=== PATIENT | male | born 1980 | race Hispanic/Latino ===

== ENCOUNTER 2022-07-29 16:59 | Emergency (ER) | payer SELFPAY ==
--- OUTSIDE RECORDS SUMMARY | 2022-07-29 17:03 | XMS REPORT | Continuity of Care Document ---
:1980 Author Organization [facility] t Address [address] [place] [address] Care Team Providers Name Role Phone DEISY MADISON Primary Care Physician Unavailable DEISY MADISON Attending Clinician Unavailable LEONCIO PATEL Attending Clinician Unavailable Los Bowden MD, Cuong Attending Clinician LISA SHERMAN Attending Clinician Unavailable JAMILA CALHOUN Attending Clinician Unavailable DONELL DARLING Attending Clinician Unavailable Payers Payer Name Policy Type Policy Number Effective Date Expiration Date Lee CERVANTES [id number] [employer] 00:00:00 00:00:00 Problems This patient has no known problems. Allergies, Adverse Reactions, Alerts This patient has no known allergies or adverse reactions. Social History Social Habit Start Date Stop Date Quantity Comments Source Gender identity Mal trotter Sexual orientation [facility] Exposure to 2021-08-15 2021-08-[address] [facility] SARS-CoV-2 (event) 00:00:00 08:14:00 Alcohol intake 2021-08-25 2021-08-25 Lifetime Mal Paul [facility] 00:00:00 00:00:00 non-drinker (finding) History of Social 2021-08-25 2021-08-25 [facility] function 00:00:00 00:00:00 Tobacco use and 2018-10-13 2018-10-13 Smokeless tobacco [facility] exposure 00:00:00 00:00:00 non-user Sex Ass[birth year] At [birth year] Mal trotter 00:00:00 00:00:00 Smoking Status Start Date Stop Date Source Never smoked tobacco [facility] Medications This patient has no known medications. Vital Signs Vital Name Observation Time Observation Value Comments Source Systolic blood pressure 2021-08-25 08:29:00 114 mm[Hg] [facility] Diastolic blood pressure 2021-08-25 08:29:00 60 mm[Hg] [facility] Heart rate 2021-08-25 08:29:00 62 /min [facility] Body temperature 2021-08-25 08:29:00 36.72 [facility] Respiratory rate 2021-08-25 08:29:00 16 /min [facility] Body height 2021-08-25 08:29:00 172.7 cm [facility] Body weight 2021-08-25 08:29:00 74.118 kg [facility] BMI 2021-08-25 08:29:00 24.84 kg/m2 [facility] Systolic blood pressure 2021-08-25 08:29:00 114 mm[Hg] [facility] Diastolic blood pressure 2021-08-25 08:29:00 60 mm[Hg] [facility] Heart rate 2021-08-25 08:29:00 62 /min [facility] Body temperature 2021-08-25 08:29:00 36.72 [facility] Respiratory rate 2021-08-25 08:29:00 16 /min [facility] Body height 2021-08-25 08:29:00 172.7 cm [facility] Body weight 2021-08-25 08:29:00 74.118 kg [facility] BMI 2021-08-25 08:29:00 24.84 kg/m2 [facility] Systolic blood pressure 2021-08-25 08:29:00 114 mm[Hg] [facility] Diastolic blood pressure 2021-08-25 08:29:00 60 mm[Hg] [facility] Heart rate 2021-08-25 08:29:00 62 /min [facility] Body temperature 2021-08-25 08:29:00 36.72 [facility] Respiratory rate 2021-08-25 08:29:00 16 /min [facility] Body height 2021-08-25 08:29:00 172.7 cm Mal Burdick brayden Body weight 2021-08-25 08:29:00 74.118 kg Mal Burdick ea BMI 2021-08-25 08:29:00 24.84 kg/m2 [facility] Gennaro brayden Procedures Procedure Date / Time Performed Performing Clinician Sourc e CBC/DIFF 2021-08-25 09:25:00 Deisy Madison h LIPID PROFILE 2021-08-25 09:25:00 [facility] STIMULATING HORMONE 2021-08-25 09:25:00 Sweetie Madisonong Mal [facility] COMPREHENSIVE METABOLIC 2021-08-25 09:25:00 [facility] PANEL HEMOGLOBIN A1C 2021-08-25 09:25:00 Deisy Madison HIV AG/AB COMBO ROUTINE 2021-08-25 09:25:00 [facility] SCREENING CBC 2021-08-25 09:25:00 Los Deisy Mal burdick Encounters Start End Encounter Admission Attending Care Care Encounter Source Date/Time Date/Time Type Type Clinicians Facility Department ID 2022-07-15 2022-07-15 Outpatient LOS DEISY [facility] [id number] Resendez 00:00:00 00:00:00 Health 2022-07-07 2022-07-07 Outpatient [facility] [id number] Resendez 08:47:22 09:28:37 [facility] 2022-06-15 2022-06-15 Outpatient [facility] [id number] Resendez 08:46:08 08:49:45 Health 2022-06-15 2022-06-15 Outpatient [facility] [id number] Resendez 08:09:57 08:46:39 Health 2022-06-15 2022-06-15 Outpatient [facility] [id number] Resendez 00:00:00 00:00:00 Health 2021-08-25 2021-08-25 Outpatient [facility] [id number] Resendez 09:22:17 09:25:45 Health 2021-08-25 2021-08-25 Outpatient [facility] [id number] Chancellor 08:33:12 09:18:45 Health 2021-08-25 2021-08-25 Outpatient 3 [facility] [id number] Chancellor 08:33:12 09:18:45 Health 2021-08-25 2021-08-25 Office Sweetie Madisonmae VAZQUEZ [id number] Chancellor 08:20:00 09:18:45 [place] [id number] [place] [id number] [place] [id number] 2021-08-25 Outpatient MADISON, [facility] [id number] Chancellor 00:00:00 00:00:00 Health 2021-03-16 2021-03-16 Outpatient [facility] [id number] Chancellor 00:00:00 00:00:00 Health 2020-09-16 2020-09-16 Outpatient WHITCORNELIUSU [facility] [id number] Chancellor 10:57:15 12:12:26 Health 2020-09-10 2020-09-10 Outpatient MADISON, DEISY [facility] [id number] Chancellor 14:28:20 15:07:47 Health 2020-09-04 2020-09-04 [facility] [id number] Chancellor 01:28:00 03:59:00 JAMILA [facility] 2020-09-03 2020-09-03 Emergency [facility] [id number] Chancellor 19:30:37 19:30:37 OSAZE [facility] 2020-08-08 2020-08-08 Outpatient MADISON, [facility] [id number] Chancellor 07:23:19 08:15:39 Health 2020-07-10 2020-07-10 Outpatient MADISON, [facility] [id number] Chancellor 08:56:07 23:59:00 Health 2020-07-08 2020-07-08 Outpatient [facility] [id number] Chancellor 07:30:05 23:59:00 Health 2020-07-08 2020-07-08 Outpatient MADISON, [facility] [id number] Chancellor 08:50:35 08:56:24 Health 2020-07-08 2020-07-08 Outpatient MADISON, [facility] [id number] Chancellor 00:00:00 00:00:00 Health 2020-06-24 2020-06-24 Outpatient MADISON, [facility] [id number] Chancellor 00:00:00 00:00:00 Health 2020-06-04 2020-06-04 Outpatient MADISON, [facility] [id number] Chancellor 08:37:49 08:59:09 Health 2020-06-04 2020-06-04 Outpatient MADISON, [facility] [id number] Chancellor 08:02:43 08:19:37 Health 2020-06-02 2020-06-02 Outpatient MADISON, [facility] [id number] Chancellor 07:09:25 08:49:34 Health 2020-06-02 2020-06-02 Outpatient MADISON, [facility] [id number] Chancellor 00:00:00 00:00:00 [facility] 2020-05-22 2020-05-22 Outpatient MADISON, [facility] [id number] Chancellor 08:05:49 08:08:48 Health 2020-05-22 2020-05-22 Outpatient MADISON, [facility] [id number] Chancellor 00:00:00 00:00:00 [facility] 2020-05-14 2020-05-14 Outpatient MADISON, [facility] [id number] Chancellor 00:00:00 00:00:00 [facility] 2020-04-30 2020-04-30 Outpatient MADISON, [facility] [id number] Chancellor 00:00:00 00:00:00 [facility] 2020-04-16 2020-04-16 Outpatient MADISON, [facility] [id number] Chancellor 07:06:29 08:32:13 Health 2019-05-22 2019-05-22 Outpatient [facility] [id number] Chancellor 08:58:48 08:58:48 Health 2019-05-22 2019-05-22 Outpatient [facility] [id number] Resendez 08:20:01 08:20:01 Health 2019-05-22 2019-05-22 Outpatient [facility] [id number] Resendez 00:00:00 00:00:00 Health 2019-05-21 2019-05-21 Outpatient [facility] [id number] Resendez 00:00:00 00:00:00 Health 2019-01-16 2019-01-16 Outpatient [facility] [id number] Resendez 08:22:30 08:22:30 Health 2019-01-16 2019-01-16 Outpatient [facility] [id number] Resendez 07:52:06 07:52:06 Health 2019-01-16 2019-01-16 Outpatient [facility] [id number] Chancellor 00:00:00 00:00:00 Health 2018-12-29 2018-12-29 Outpatient [facility] [id number] Chancellor 00:00:00 00:00:00 Health 2018-11-15 2018-11-15 Outpatient [facility] [id number] Chancellor 09:02:23 09:02:23 Health 2018-11-15 2018-11-15 Outpatient [facility] [id number] Resendez 08:25:17 08:25:17 Health 2018-11-15 2018-11-15 Outpatient [facility] [id number] Chancellor 00:00:00 00:00:00 [facility] 2018-10-15 2018-10-15 Emergency [facility] [id number] Resendez 21:26:30 21:26:30 Health Results Test Description Test Time Test Comments Results Result Comments Source HIV 1+2 Ab+HIV1 p24 Ag SerPl Ql IA 2021-08-25 16:11:00 Test Item Value Reference Range Interpretation Comme nts HIV 1+2 Ab+HIV1 p24 Ag SerPl Ql IA (test code = 09959-6) NEGATIVE Negative [facility]
[2022-07-29] MEDS ORDERED: HYDROCODONE/APAP 5/325 MG TAB ONE (17:39)
[2022-07-29] MEDS ORDERED: CEFAZOLIN SODIUM 1 GM/VIAL ONE (17:39)
--- NOTE | 2022-07-29 17:56 | ER ---
Nurse's Notes [facility] Name: Michael Mock Age: 41 yrs Sex: Male : 1980 Arrival Date: 07/29/2022 Time: 16:59 Bed 8 Private MD: Diagnosis: Laceration without foreign body of left hand, initial encounter-with extensor tendon injury Presentation: 07/29 17:05 Chief complaint: EMS states: LEFT HAND LAC. Coronavirus screen: At this time, the bp client does not indicate any symptoms associated with coronavirus-19. Ebola Screen: No symptoms or risks identified at this time. Initial Sepsis Screen: Does the patient meet any 2 criteria? No. Patient's initial sepsis screen is negative. Does the patient have a suspected source of infection? No. Patient's initial sepsis screen is negative. Risk Assessment: Do you want to hurt yourself or someone else? Patient reports no desire to harm self or others. 17:05 Method Of Arrival: Ambulatory bp Triage Assessment: 17:05 General: Appears uncomfortable, Behavior is cooperative, appropriate for age, anxious. bp Pain: Complains of pain in left hand. EENT: No deficits noted. Neuro: No deficits noted. Cardiovascular: No deficits noted. Respiratory: No deficits noted. GI: No signs and/or symptoms were reported involving the gastrointestinal system. : No signs and/or symptoms were reported regarding the genitourinary system. Derm: No deficits noted. Musculoskeletal: No deficits noted. Injury Description: Laceration sustained to left hand is full thickness, was sustained 30-60 minutes ago. a small amount of bleeding noted at this time. Historical: - Allergies: 17:44 No Known Allergies; bp - Home Meds: 17:44 None [Active]; bp - PMHx: 17:44 None; bp - Immunization history:: Adult Immunizations unknown. - Social history:: Smoking status: Patient denies any tobacco usage or history of. Screenin:45 [facility] ED Fall Risk Assessment (Adult) History of falling in the last 3 months, bp including since admission No falls in past 3 months (0 pts). Abuse screen: Denies threats or abuse. Denies injuries from another. Nutritional screening: No deficits noted. Tuberculosis screening: No symptoms or risk factors identified. Assessment: 17:05 General: SEE TRIAGE NOTE. bp 17:45 Reassessment: PT LEAVING AMA. ADVISED AGAINST BY STAFF AND PROVIDER, BUT INSISTED. PT bp ADVISED TO SEEK MEDICAL ATTENTION OR RETURN HERE, STATES HE WILL BE GOING TO [facility] WHERE HE HAS A PRE-EXISTING HEALTHCARE RELATIONSHIP. PT AO4, STEADY GAIT, NO ACTIVE BLEEDING. Vital Signs: 17:05 BP 141 / 79; Pulse 87; Resp 16; Temp 98; Pulse Ox 99% ; bp ED Course: 17:01 Patient arrived in ED. em1 17:02 Singh Teran PA is PHCP. cp 17:02 Singh Doss MD is Attending Physician. cp 17:05 Arm band placed on. bp 17:05 Patient has correct armband on for positive identification. Bed in low position. Call bp light in reach. Side rails up X2. 17:05 No provider procedures requiring assistance completed. Patient did not have IV access bp during this emergency room visit. 17:14 Charles Amaya, RN is Primary Nurse. bp Administered Medications: 17:39 Not Given (Patient Refused): Tetanus-Diphtheria Toxoid IM Adult 0.5 ml IM once; Provide bp Vaccine Information Statement (VIS). 17:39 Not Given (Patient Refused): ceFAZolin IVPB 1 grams IVPB once bp 17:39 Not Given (Patient Refused): NS 0.9% IV 1000 ml IV at 1 bolus Per protocol; 1000 mL bp bolus 17:39 Drug: CeFAZolin IM 1 grams Route: IM; Site: right gluteus; bp 17:40 Follow up: Response: No adverse reaction bp 17:39 Drug: HYDROcodone-acetaminophen PO 5 mg-325 mg 1 tabs Route: PO; bp 17:39 Follow up: Response: No adverse reaction bp Medication: 17:45 VIS not applicable for this client. bp Outcome: 17:05 AMA AMA form signed bp 17:05 Condition: stable 18:12 Patient left the ED. bp Signatures: Carlos Underwood em1 Singh Teran PA PA cp Charles Amaya, RN RN bp
--- NOTE | 2022-07-29 17:56 | EDPHYS ---
Physician Documentation [facility] Name: Michael Mock Age: 41 yrs Sex: Male : 1980 Arrival Date: 07/29/2022 Time: 16:59 Bed 8 Private MD: ED Physician Singh Doss HPI: 07/29 17:12 This 41 yrs old Male presents to ER via Ambulatory with complaints of Left cp Hand Laceration. 17:12 The patient or guardian reports injury, a laceration, clean. The complaints affect the cp dorsal side of left hand. Context: The problem was sustained at work, resulted from use of saw. Onset: The symptoms/episode began/occurred just prior to arrival. Associated signs and symptoms: The patient has no apparent associated signs or symptoms. Historical: - Allergies: 17:44 No Known Allergies; bp - Home Meds: 17:44 None [Active]; bp - PMHx: 17:44 None; bp - Immunization history:: Adult Immunizations unknown. - Social history:: Smoking status: Patient denies any tobacco usage or history of. ROS: 17:15 Constitutional: Negative for body aches, chills, fever, poor PO intake. cp 17:15 Eyes: Negative for injury, pain, redness, and discharge. cp 17:15 ENT: Negative for drainage from ear(s), ear pain, sore throat, difficulty swallowing, difficulty handling secretions. 17:15 Cardiovascular: Negative for chest pain, edema, palpitations. 17:15 Respiratory: Negative for cough, shortness of breath, wheezing. 17:15 Abdomen/GI: Negative for abdominal pain, nausea, vomiting, and diarrhea. 17:15 Back: Negative for pain at rest, pain with movement, radiated pain. 17:15 MS/extremity: Positive for injury or acute deformity, laceration, pain, of the left hand. 17:15 Neuro: Negative for altered mental status, dizziness, headache, weakness. 17:15 All other systems are negative. Exam: 17:20 Constitutional: The patient appears in no acute distress, alert, awake, cp non-diaphoretic, non-toxic, well developed, well nourished, uncomfortable. 17:20 Head/Face: Normocephalic, atraumatic. cp 17:20 Eyes: Periorbital structures: appear normal, Conjunctiva: normal, no exudate, no injection, Sclera: no appreciated abnormality, Lids and lashes: appear normal, bilaterally. 17:20 ENT: External ear(s): are unremarkable, Nose: is normal, Mouth: Lips: moist, Oral mucosa: pink and intact, moist, Posterior pharynx: is normal, airway is patent, no erythema, no exudate. 17:20 Neck: ROM/movement: is normal, is supple, without pain, no range of motions limitations. 17:20 Chest/axilla: Inspection: normal. 17:20 Cardiovascular: Rate: normal, Rhythm: regular. 17:20 Respiratory: the patient does not display signs of respiratory distress, Respirations: normal, no use of accessory muscles, no retractions, labored breathing, is not present, Breath sounds: are clear throughout, no decreased breath sounds, no stridor, no wheezing. 17:20 Abdomen/GI: Exam negative for discomfort, distension, guarding, Inspection: abdomen appears normal. 17:20 Musculoskeletal/extremity: exam of left hand shows deep laceration dorsal side over fourth and fifth metatarsal head with exposed and injured extensor tendons. patient unable to fully extend left fourth finger. all digits neurovascular intact. 17:20 Neuro: Orientation: to person, place \T\ time. Mentation: is normal. Vital Signs: 17:05 BP 141 / 79; Pulse 87; Resp 16; Temp 98; Pulse Ox 99% ; bp MDM: 17:07 Patient medically screened. 17:15 Differential diagnosis: dislocation, open fracture, tendon rupture, vascular injury. 17:55 Data reviewed: vital signs, nurses notes. 17:55 I considered the following discharge prescriptions or medication management in the emergency department Medications were administered in the Emergency Department. See MAR. Test considered but Not performed: X-ray: left hand. Refusal of service: The patient/guardian displays adequate decision making capability and despite a detailed discussion of alternatives, benefits, risks, and consequences refuses: all X-rays, wound management at this time. Patient reports he will go to hospital in [place] for evaluation. Refuses cleaning and full evaluation of wound. 07/29 17:08 Order name: EKG; Complete Time: 17:09 Administered Medications: 17:39 Not Given (Patient Refused): Tetanus-Diphtheria Toxoid IM Adult 0.5 ml IM once; Provide bp Vaccine Information Statement (VIS). 17:39 Not Given (Patient Refused): ceFAZolin IVPB 1 grams IVPB once bp 17:39 Not Given (Patient Refused): NS 0.9% IV 1000 ml IV at 1 bolus Per protocol; 1000 mL bp bolus 17:39 Drug: CeFAZolin IM 1 grams Route: IM; Site: right gluteus; bp 17:40 Follow up: Response: No adverse reaction bp 17:39 Drug: HYDROcodone-acetaminophen PO 5 mg-325 mg 1 tabs Route: PO; bp 17:39 Follow up: Response: No adverse reaction bp Disposition Summary: 07/29/22 17:55 Left Against Medical Advice Location: Home cp Problem: new cp Symptoms: are unchanged cp Condition: Stable cp Diagnosis - Laceration without foreign body of left hand, initial encounter - with extensor cp tendon injury Followup: cp - With: Emergency Department - When: Today - Reason: Wound Recheck Discharge Instructions: - Discharge Summary Sheet cp - Laceration Care, Adult cp Signatures: Dispatcher [employer] EDOK Singh Teran PA PA cp Charles Amaya, RN RN bp Corrections: (The following items were deleted from the chart) 17:48 17:08 Cardiac monitoring ordered. cp bp 17:48 17:08 EKG - Nurse/Tech ordered. cp bp 17:48 17:08 IV Saline Lock ordered. cp bp 17:48 17:08 Labs collected and sent ordered. cp bp 17:48 17:08 Oxygen Per Protocol ordered. cp bp 17:48 17:08 O2 Sat Monitoring ordered. cp bp 17:48 17:08 Hand Left 3 View+RAD.RAD.BRZ ordered. EDMS EDMS 17:48 17:08 Chest Single View+RAD.RAD.BRZ ordered. EDMS EDMS 07/30 05:37 05:35 The patient or guardian reports injury, a laceration, clean, cp cp 05:37 05:35 The complaints affect the dorsal side of left hand, cp cp 05:37 05:35 Context: The problem was sustained at work, resulted from use of saw, cp cp 05:37 05:35 Onset: The symptoms/episode began/occurred just prior to arrival, cp cp 05:37 05:35 Associated signs and symptoms: The patient has no apparent associated signs or cp symptoms, cp 05:37 05:35 This 41 yrs old Male presents to ER via Ambulatory with complaints of cp Left Hand Laceration. cp
[2022-07-29 18:20] VITALS: BP 141/79; TEMP 98; O2SAT 99
== END 2022-07-29 18:12 | disposition left against medical advice (07) ==
LOC: ER 16:59
DX: S61.412A Laceration without foreign body of left hand, initial encounter (principal)
CPT/HCPCS: 96372; 99284; J0690